=== PATIENT | female | born 1950 | race Caucasian/White ===

== ENCOUNTER → 2016-05-13 | Outpatient (CLI) | payer BC ==
[~2016-05-13] MED LIST: GADOBUTROL 10 ML VIAL IVP ONE
== END ==
LOC: FIMAGING 07:58
PROVIDERS: ATTEND Internal Medicine Hematology & Oncology
DX: R92.8 Other abnormal and inconclusive findings on diagnostic imaging of breast (principal); Z85.3 Personal history of malignant neoplasm of breast
CPT/HCPCS: 0159T; A9585; C8908

== ENCOUNTER → 2016-07-09 | Outpatient (CLI) | payer BC ==
[~2016-07-09] MED LIST changes: +BUPIVACAINE 0.5% 30 ML SDV ONE; +LIDOCAINE 1% 5 ML SDV ONE; +NA BICARBONATE 50 MEQ/50 ML VIAL ONE; +THROMBIN (BOVINE) 5,000 UNIT VIAL TP ONE
== END ==
LOC: FIMAGING 08:42
PROVIDERS: ATTEND Surgery
PROC: 0HBT3ZX Excision of Right Breast, Percutaneous Approach, Diagnostic (ICD-10-PCS; principal; 2016-07-09)
DX: N60.11 Diffuse cystic mastopathy of right breast (principal)
CPT/HCPCS: A9585

== ENCOUNTER → 2018-03-25 | Outpatient (CLI) | payer BC ==
[~2018-03-25] MED LIST changes: -BUPIVACAINE 0.5% 30 ML SDV ONE; -LIDOCAINE 1% 5 ML SDV ONE; -NA BICARBONATE 50 MEQ/50 ML VIAL ONE; -THROMBIN (BOVINE) 5,000 UNIT VIAL TP ONE
== END ==
LOC: FIMAGING 03-19 10:38
PROVIDERS: ATTEND Family Medicine
DX: C50.919 Malignant neoplasm of unspecified site of unspecified female breast (principal); M19.072 Primary osteoarthritis, left ankle and foot
CPT/HCPCS: 77047; A9585; C8908

== ENCOUNTER 2018-07-13 08:58 | Inpatient (IN) | payer BC ==
[2018-07-13] MEDS ORDERED: ceFAZolin 2 GM/DEXTROSE 100 ML IV ONE (10:44)
[2018-07-13] MEDS ORDERED: CHLORHEXIDINE GLUC HIBICLENS 118 ML BTL TP ONE (10:45)
[2018-07-13] MEDS ORDERED: BUPIVACAINE/EPI 0.25% 30 ML SDV ONE (10:46)
[2018-07-13] MEDS ORDERED: THROMBIN (BOVINE) 5,000 UNIT VIAL TP ONE (10:46)
[2018-07-13] MEDS ORDERED: BACITRACIN 50,000 UNITS/10 ML SYR IRR ONE (10:46)
[2018-07-13] MEDS ORDERED: LR 1,000 ML IV ONE (10:55)
--- NOTE | 2018-07-13 11:24 | PDGENHP ---
History & Physical Chief Complaint: Laryngeal Mass History of Present Illness: Laryngeal Mass on recent endoscopy. Pertinent Past, Social, Family History: Reviewed. Noncontributory. Relevant Physical Exam: A&O. NAD. CTA. RR Cardiorespiratory Assessment: A/P - Appropriate for DL&Bx.
[2018-07-13] MEDS ORDERED: MIDAZOLAM 2 MG/2 ML VIAL IVP ONE (11:49)
--- NOTE | 2018-07-13 11:49 | PDANEPAE ---
ANE History of Present Illness acdf laryngeal biopsy ANE Past Medical History - Cardiovascular History Hx Hypertension: Yes Hx Arrhythmias: No Hx Chest Pain: No Hx Coronary Artery / Peripheral Vascular Disease: No Hx CHF / Valvular Disease: No Hx Palpitations: No - Pulmonary History Hx COPD: No Hx Asthma/Reactive Airway Disease: No Hx Recent Upper Respiratory Infection: No Hx Oxygen in Use at Home: No Hx Sleep Apnea: Yes Sleep Apnea Screening Result - Last Documented: Positive Pulmonary History Comment: "11 minutes of exercise without breathing hard" - Neurologic History Hx Cerebrovascular Accident: No Hx Seizures: No Hx Dementia: No - Endocrine History Hx Diabetes: No Hypothyroid: No Hyperthyroid: No Obesity: no - Renal History Hx Renal Disorders: No - Liver History Hx Hepatic Disorders: No - Neurological & Psychiatric Hx Hx Neurological and Psychiatric Disorders: Yes Neurological / Psychiatric History Comment: numbness to hands in morning. when raising left arm causes cramp - Cancer History Hx Cancer: Yes Cancer History Comment: Breast cancer - Congenital Disorder History Hx Congenital Disorders: No - GI History GERD: no Hx Gastrointestinal Disorders: No - Other Health History Other Health History: pelvic fracture x2 and left leg fracture x2. cataract sx - Chronic Pain History Chronic Pain: Yes - Surgical History Prior Surgeries: lumpectomy, hysterectmy, lap adhesions on falopian tubes, tonsilectomy, C5 neck surgery. eyelid sx, ANE Review of Systems Review of Systems: - Exercise capacity Exercise capacity: >=4 METS METS (RN): 4 METS ANE Patient History - Allergies Allergies/Adverse Reactions: No Known Allergies Allergy (Verified 07/08/18 14:49) - Home Medications Home medications: home medication list seen and reviewed Home Medications: Anastrozole [Arimidex 1 mg (*)] 1 mg PO HS 07/05/16 [Last Taken 07/12/18] Sertraline HCl [Zoloft 50mg (*)] 50 mg PO HS 07/05/16 [Last Taken 07/12/18] amLODIPine BESYLATE [Norvasc 10 mg (*)] 10 mg PO HS 07/05/16 [Last Taken ] Acetaminophen [Tylenol 325mg (*)] 325 mg PO Q6 PRN 07/08/18 [Last Taken 07/12/18 ] Carboxymethylcellulose 1% [Refresh Celluvisc (*)] 1 drop EACHEYE DAILY PRN 07/08 [Last Taken 07/13/18] - NPO status NPO Since - Liquids (Date): 07/12/18 NPO Since - Liquids (Time): 23:59 NPO Since - Solids (Date): 07/12/18 NPO Since - Solids (Time): 18:00 - Anes Hx Hx Anesthesia Complications (with details): states it takes 6 months to get over the haze of anesthesia, loss of executive functions to organize, lost more recent memories - Smoking Hx Smoking Status: Never smoked - Family Anes Hx Family Hx Anesthesia Complications: mother had similar issues ANE Labs/Vital Signs - Vital Signs Blood Pressure: 130/69 Heart Rate: 71 Respiratory Rate: 71 O2 Sat (%): 97 Height: 162.56 cm Weight: 71.214 kg ANE Physical Exam - Airway Mallampati Score: Class 2 Mouth exam: normal dental/mouth exam - Pulmonary Pulmonary: no respiratory distress - Cardiovascular Cardiovascular: regular rate and rhythym - ASA Status ASA Status: II ANE Anesthesia Plan Anesthesia Plan: general endotracheal anesthesia
[2018-07-13] MEDS ORDERED: fentaNYL 100 MCG/2 ML INJ ONE ×2 (11:53→16:00)
[2018-07-13] MEDS ORDERED: PROPOFOL 200 MG/20 ML VIAL ONE (11:53)
[2018-07-13] MEDS ORDERED: PROPOFOL/EMULSION 500 MG/50 ML BOTTLE IV ONE (11:53)
[2018-07-13] MEDS ORDERED: REMIFENTANIL HCL 1 MG VIAL ONE (11:53)
[2018-07-13] MEDS ORDERED: LIDOCAINE 2% 5 ML SDV ONE (11:57)
[2018-07-13] MEDS ORDERED: ROCURONIUM 50 MG/5 ML VIAL ONE (11:58)
[2018-07-13] MEDS ORDERED: SUCCINYLCHOLINE CHLORIDE 200 MG/10 ML SYR IVP ONE (11:58)
[2018-07-13] MEDS ORDERED: DEXAMETHASONE 4 MG/ML VIAL ONE ×2 (11:59)
--- NOTE | 2018-07-13 12:41 | PDHPUP ---
History & Physical Update H&P update statement: This history and physical update is based on an assessment of the patient which was completed after admission or registration (within 24 hours), but prior to the surgery/procedure. H&P update: H&P reviewed & patient examined, no change in patient's condition since H&P completed
[2018-07-13] MEDS ORDERED: OXYMETAZOLINE 30 ML NASAL SPRAY ONE (13:15)
[2018-07-13] MEDS ORDERED: SUGAMMADEX SODIUM 200 MG/2 ML VIAL IVP ONE (13:53)
[2018-07-13] MEDS ORDERED: ONDANSETRON 4 MG/2 ML VIAL ONE (15:17)
[2018-07-13] MEDS ORDERED: LR 500 ML IV PRN (15:35)
[2018-07-13] MEDS ORDERED: ALBUTEROL 3 ML DEYVIAL IH PRN (15:35)
[2018-07-13] MEDS ORDERED: NALOXONE HCL 0.4 MG/ML INJ IVP PRN (15:35)
[2018-07-13] MEDS ORDERED: ONDANSETRON 4 MG/2 ML VIAL IVP PRN ×2 (15:35→15:42)
[2018-07-13] MEDS ORDERED: CARBOXYMETHYLCELLULOSE 1% 0.4 ML DROPERETTE EACHEYE PRN (15:41)
[2018-07-13] MEDS ORDERED: MAGNESIUM HYDROXIDE 30 ML UDCUP PO PRN (15:42)
[2018-07-13] MEDS ORDERED: ONDANSETRON DISINTEGRATING 4 MG TAB PO PRN (15:42)
[2018-07-13] MEDS ORDERED: BISACODYL 10 MG SUPP PR PRN (15:42)
[2018-07-13] MEDS ORDERED: LACTULOSE 20 GM/30 ML UDCUP PO PRN (15:42)
[2018-07-13] MEDS ORDERED: NS 1,000 ML IV SCH (15:45)
--- NOTE | 2018-07-13 15:50 | SOAPPROG ---
SOAP Progress Note Assessment/Plan: Assessment: 68 yo F sp C5/6 plate removal, C4/5 ACDF and epiglottis biopsy Plan: stable To 3N PT/OT hard collar in am ANNE x 1 please call with neuro changes 07/13/18 15:48 + Subjective: + neck pain, no arm pain, no weakness. Objective: Vital Signs Temp Pulse Resp BP Pulse Ox 36.5 C 71 71 H 130/69 H 97 07/13/18 11:03 07/13/18 11:49 07/13/18 11:49 07/13/18 11:49 07/13/18 11:49 somnolent PERRL, EOMI no facial droop 5/5 + light touch ICD10 Worksheet Patient Problems: Problems Problem Status Onset Fusion of spine of cervical region Acute - ICD10 Problem Qualifiers (1) Fusion of spine of cervical region
--- NOTE | 2018-07-13 15:56 | POSTANESTH ---
Post Anesthetic Evaluation Cardiovascular Status: Normal, Stable Respiratory Status: Normal, Stable Level of Consciousness/Mental Status: Can Participate in Eval Pain Control: Adequate, Prn Tx Ordered Nausea/Vomiting Control: Adequate, Prn Tx Ordered Complications Possibly Related to Anesthesia: None Noted
--- NOTE | 2018-07-13 15:57 | PDMN ---
Medical Necessity Medical necessity: [facility] S320 cervical fusion, OP: plate removal C5/6,C4/5 ACDF APPROVED AUTH#[id number] FOR [id number]
[2018-07-13] MEDS ORDERED: HYDROmorphONE/DILAUDID 1 MG/ML INJ ONE ×2 (16:00→16:50)
[2018-07-13] MEDS: fentaNYL 100 MCG/2 ML INJ IVP PRN ×2 (16:03→16:19)
[2018-07-13] MEDS ORDERED: DIAZEPAM 10 MG/2 ML SYR ONE (16:09)
[2018-07-13] MEDS: DIAZEPAM 10 MG/2 ML SYR IVP PRN ×4 (16:11→16:43)
[2018-07-13] MEDS: HYDROmorphONE/DILAUDID 1 MG/ML INJ IVP PRN ×5 (16:26→17:21)
[2018-07-13] MEDS: METHOCARBAMOL 750 MG TAB PO PRN (20:00)
[2018-07-13] MEDS: ANASTROZOLE 1 MG TAB PO SCH (20:01)
[2018-07-13] MEDS: SERTRALINE HCL 50 MG TAB PO SCH (20:02)
[2018-07-13] MEDS: FAMOTIDINE 20 MG TAB PO SCH (20:02)
[2018-07-13] MEDS: SENNOSIDES/DOCUSATE SODIUM TAB PO SCH (20:04)
[2018-07-13] MEDS: oxyCODONE IR 5 MG TAB PO PRN (20:15)
[2018-07-13] MEDS: ACETAMINOPHEN 500 MG TAB PO SCH (21:59)
[2018-07-13] MEDS: POLYETHYLENE GLYCOL 3350 17 GM PKT PO SCH (22:01)
[2018-07-13] MEDS: ceFAZolin 2 GM/DEXTROSE 100 ML IV SCH (22:07)
[2018-07-14] MEDS: POLYETHYLENE GLYCOL 3350 17 GM PKT PO SCH ×4 (04:12→20:57)
[2018-07-14 04:44] LABS: PLATELET COUNT 290 10^3/uL (150-400)
[2018-07-14] MEDS: ceFAZolin 2 GM/DEXTROSE 100 ML IV SCH (05:36)
[2018-07-14] MEDS: ACETAMINOPHEN 500 MG TAB PO SCH ×3 (05:57→22:35)
[2018-07-14] MEDS ORDERED: METHOCARBAMOL 1,000 MG in NS 50 ML IV ONE (08:56)
[2018-07-14] MEDS ORDERED: NS 500 ML IV ONE (08:56)
[2018-07-14] MEDS ORDERED: NS W/ 20 KCl/L 1,000 ML IV SCH (09:00)
[2018-07-14] MEDS ORDERED: SCOPOLAMINE HYDROBROMIDE 1 MG/3 DAYS PATCH TD SCH (09:00)
--- NOTE | 2018-07-14 09:03 | NEUSURGPN ---
Assessment/Plan: Assessment: 68 yo F sp C5/6 plate removal, C4/5 ACDF and epiglottis biopsy POD1 Plan: Nausea- order scopolamine patch, ordered IV fluids Optimize pain management- IV Robaxin x1 ordered for muscle spasms. morphine IV d /c. Need to work on Oral regiment today Post op xrays pending PT/OT hard collar in am ANNE x 1- Will continue till discharge Pathology from biopsy pending please call with neuro changes Discussed with Dr. Allen Subjective: Nausea and vomiting last night. Posterior neck pain. Objective: NAD A&Ox3 MAEx4 5/5 and equal in BUE and BLE. Neck soft, supple, no swelling. ANNE drain serosanguineous - Physician Discussed Patient with DrSiri: Yo Neurosurgery Physical Exam - Vitals, I&O, Labs I and O 07/13/18 07/14/18 07/15/18 05:59 05:59 05:59 Intake Total 2110 100 Output Total 1625 10 Balance 485 90 Weight 71.21 kg Intake: Oral (ml) 760 IV Intake (ml) 1250 IV Infused (ml) 100 100 ceFAZolin 2 GM/DEXTROSE 100 100 100 ml @ 200 mls/hr IV ONCALL ONE Rx#:[id number] Output: Urine (ml) 1575 Bedside Commode 575 Incontinence 700 Toilet 300 Estimated Blood Loss (ml) 0 ANNE Drain Output (ml) 50 10 Neck 50 10 Other: Number of Voids Bedside Commode 2 Incontinence 1 Toilet 1 Vital Signs Temp Pulse Resp BP Pulse Ox 37.0 C 80 16 121/62 H 98 07/14/18 07:58 07/14/18 07:58 07/14/18 07:58 07/14/18 07:58 07/14/18 07:58 Laboratory Results 07/14/18 04:15 07/14/18 04:15 ICD10 Worksheet Patient Problems: Problems Problem Status Onset Fusion of spine of cervical region Acute
[2018-07-14] MEDS: oxyCODONE IR 5 MG TAB PO PRN ×3 (10:14→20:55)
[2018-07-14] MEDS: FAMOTIDINE 20 MG TAB PO SCH ×2 (10:14→20:34)
[2018-07-14] MEDS: SENNOSIDES/DOCUSATE SODIUM TAB PO SCH ×2 (11:29→20:34)
--- NOTE | 2018-07-14 15:48 | ASMTCMCOM ---
CM Note CM Note Notes: Pt had planned surgery for stenosis. Pt resides with spouse. PT rec home care, OT rec home/ 24 hr supervision. Pt will think about home care, wants to see how she does with PT tomorrow. CM to follow pt progress and see pt tomorrow. Pt mentions she has an appointment at for an ankle surgery. D/c plan of care: Date Signed: 07/14/2018 03:48 PM Electronically Signed By:KELLIE Manning
[2018-07-14] MEDS: diphenhydrAMINE 25 MG CAP PO PRN (16:31)
[2018-07-14] MEDS: SERTRALINE HCL 50 MG TAB PO SCH ×2 (20:34→21:19)
[2018-07-14] MEDS: ANASTROZOLE 1 MG TAB PO SCH ×2 (20:35→21:01)
[2018-07-15] MEDS: diphenhydrAMINE 25 MG CAP PO PRN ×3 (03:11→15:50)
[2018-07-15] MEDS: oxyCODONE IR 5 MG TAB PO PRN ×2 (03:11→15:48)
[2018-07-15] MEDS: METHOCARBAMOL 750 MG TAB PO PRN ×2 (03:13→13:47)
[2018-07-15] MEDS: ACETAMINOPHEN 500 MG TAB PO SCH ×2 (06:06→13:40)
--- NOTE | 2018-07-15 12:10 | PDHOMEO2F ---
Home Oxygen Face to Face Home Orders: I certify that a physician or a nurse practitioner or physician's physicians assistant has had a [id number] encounter with this patient on the date of this order due to the diagnosis listed, which relates to the primary reason the patient requires home oxygen. Alternative treatments have been tried, or considered, and deemed ineffective. It is anticipated that supplemental oxygen will result in improvement with treatment. Home oxygen qualifying diagnosis: post op hypoxia SpO2 on room air (%): 84% Frequency of home oxygen needed: continuous Home oxygen liters per minute: 2-4 Home oxygen delivery device: nasal cannula Concentrator: Yes E-tanks for mobility and back up: Yes If ordering portable O2, is the patient mobile in the home?: Yes I certify that, based on these findings, the home oxygen is medically necessary for this patient for the following length of time. Length of time home oxygen needed: 1 month
[2018-07-15] MEDS: SENNOSIDES/DOCUSATE SODIUM TAB PO SCH (13:21)
[2018-07-15] MEDS: POLYETHYLENE GLYCOL 3350 17 GM PKT PO SCH ×2 (13:21→16:48)
[2018-07-15] MEDS: FAMOTIDINE 20 MG TAB PO SCH (13:21)
[2018-07-15] MEDS ORDERED: PNEUMOC 13-VAL CONJ-DIP CRM/PF 0.5 ML SYR (PREVNAR 13) IM ONE (13:24)
--- NOTE | 2018-07-15 13:50 | GOP ---
[f rep st] OPERATIVE REPORT DATE OF OPERATION: 07/13/2018 SURGEON: Dereje Suárez MD ICT QUALITY ASSURANCE ENGINEER: None. ANESTHESIA: General. PREOPERATIVE DIAGNOSIS: Epiglottic mass, posterior pharyngeal mass. POSTOPERATIVE DIAGNOSIS: Same. PROCEDURE PERFORMED: Direct laryngoscopy with biopsies of both posterior pharyngeal and epiglottic m asses. FINDINGS: 5 mm left epiglottic mucosal covered pedunculated mass. 2 mm left posterior pharyngeal pe dunculated mucosal covered mass. SPECIMENS: 5 mm left epiglottic mucosal covered pedunculated mass. 2 mm left posterior pharyngeal p edunculated mucosal covered mass. INDICATIONS: Patient was seen in outpatient clinic in evaluation for vocal cord function. Vocal fol d function was found to be normal, but on endoscopy she was found to have a left-sided epiglottic mas s and a left posterior pharyngeal mass. Given her history and findings, she was determined to be an appropriate candidate for the above-stated procedures. The risks, benefits, and alternatives to the procedures were explained at length to the patient, who stated she understood and agreed. DESCRIPTION OF PROCEDURE: Patient was brought to the Operating Room by Anesthesiology and placed on the operating table. Once appropriate level of anesthesia was achieved, the patient was prepped and draped in the usual fashion. A teeth guard was placed over the upper teeth. The oral cavity was ins pected visually and palpated with no abnormal findings. The Dedo laryngoscope was then passed throug h the oral cavity, posterior pharynx, and hypopharynx for view of the larynx. The vallecula, epiglot tis, tongue base, bilateral piriform sinuses, false and true vocal folds, and cricoid region were all inspected. The only lesions found were those noted in the findings. The left-sided epiglottic mass was localized within view of the laryngoscope. A cup forceps was then used to grasp the base of the lesion and complete an excisional biopsy. There was some mild bleeding with this, and hemostasis wa s achieved using Afrin-soaked pledgets. With the pledgets removed, there was good hemostasis. The l aryngoscope was then moved in order to focus on the posterior pharyngeal mass. Again, the cup forcep s were used to grasp and excise this lesion. There was some mild bleeding at the surgical bed, and t his was controlled with Afrin-soaked pledgets. Once removed, there was good hemostasis at the site. The laryngoscope was then removed. The upper teeth guard was removed. The patient was then turned over to Anesthesiology and Dr. Ram for the cervical spine portion of the case. COMPLICATIONS: None. /[id number]/MODL
--- NOTE | 2018-07-15 14:03 | PDHOMEO2F ---
Home Oxygen Face to Face Home Orders: I certify that a physician or a nurse practitioner or physician's executive chef assistant has had a [id number] encounter with this patient on the date of this order due to the diagnosis listed, which relates to the primary reason the patient requires home oxygen. Alternative treatments have been tried, or considered, and deemed ineffective. It is anticipated that supplemental oxygen will result in improvement with treatment. Home oxygen qualifying diagnosis: post op hypoxia SpO2 on room air (%): 84% Frequency of home oxygen needed: continuous Home oxygen liters per minute: 2 Home oxygen delivery device: nasal cannula Concentrator: Yes E-tanks for mobility and back up: Yes If ordering portable O2, is the patient mobile in the home?: Yes I certify that, based on these findings, the home oxygen is medically necessary for this patient for the following length of time. Length of time home oxygen needed: 1 month
--- NOTE | 2018-07-15 15:24 | ASMTLACE ---
LACE Length of stay for Answers: 3 days current admission Acuity / Level of Answers: Yes Care: Did the patient have an inpatient admission? Comorbidities - select Answers: Any tumor (including all that apply lymphoma or leukemia) Opioid dependence / Chronic pain Other Notes: HTN # of Emergency department Answers: 0 visits in the last 6 months Score: 13 Date Signed: 07/15/2018 03:23 PM Electronically Signed By:KELLIE Manning
--- NOTE | 2018-07-15 15:29 | ASMTCMCOM ---
CM Note CM Note Notes: Today PT rec home, pt declines home care need. Pt will have supervision from and friends/family. Pt has [facility] PCP, voicemail left at scheduling back line [phone] for follow up with pt. Date Signed: 07/15/2018 03:28 PM Electronically Signed By:KELLIE Manning
[2018-07-15 15:35] VITALS: BP 137/76
--- NOTE | 2018-07-15 15:40 | SOAPPROG ---
SOAP Progress Note Assessment/Plan: Assessment: 68 yo F POD #2 C5/6 plate removal, C4/5 ACDF and epiglottis biopsy Plan: stable x-rays look great PT/OT hard collar in am ANNE, remove today dc home please call with neuro changes patient seen by Dr Allen 07/13/18 15:48 + 07/15/18 15:39 Subjective: + neck pain, no arm pain, no weakness. Objective: Vital Signs Temp Pulse Resp BP Pulse Ox 37.4 C 90 17 137/76 H 92 07/15/18 15:34 07/15/18 15:34 07/15/18 15:34 07/15/18 15:34 07/15/18 15:34 Laboratory Results 07/14/18 04:15 07/14/18 04:15 07/14/18 07/15/18 07/16/18 05:59 05:59 05:59 Intake Total 2110 1100 Output Total 1625 30 20 Balance 485 1070 -20 AAOx4, +FC PERRL, EOMI, no facial droop 5/5 + light touch C/D/I ICD10 Worksheet Patient Problems: Problems Problem Status Onset Fusion of spine of cervical region Acute - ICD10 Problem Qualifiers (1) Fusion of spine of cervical region
--- NOTE | 2018-07-15 20:06 | GDS ---
[f rep st] DISCHARGE SUMMARY ADMISSION DIAGNOSES: 1. 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 2. Laryngeal mass. DISCHARGE DIAGNOSES: 1. Status post C5-6 plate removal and C4-5 anterior cervical diskectomy and fusion. 2. Biopsy of the laryngeal mass. HISTORY AND PHYSICAL: Please see admission history and physical. COURSE: Patient is a 68-year-old female who presented with neck pain, right arm pain, and paresthesias. She was found to have C4-5 stenosis. She was referred to [facility] for evaluation of her recurrent laryngeal nerve function prior to redo anterior cervical diskectomy and fusion there that Dr. Dereje Suárez discovered a laryngeal mass. She was taken to the operating room on 07/13/2018, where she underwent of C5-6 plate removal and C4-5 anterior cervical diskectomy and fusion. After the induction with anesthesia, Dr. Suárez performed a laryngeal mass biopsy. There were no intraoperative complications and the patient woke up well in the recovery room. She was then transferred to the floor where she made fair progress with physical therapy and occupational therapy, she was ambulating on, tolerating a regular diet. She was discharged home with oxygen for a postoperative hypoxia on 07/15/2018. Patient was discharged with cervical fusion instructions and recommended she return for neurosurgical followup appointment in 10-14 days. It was also recommended that she follow up with Dr. Suárez in approximately 1-2 weeks for her biopsy results. /[id number]/MODL MTDD
[2018-07-16] MEDS ORDERED: ENOXAPARIN 40 MG/0.4 ML SYR SC SCH (09:00)
--- NOTE | 2018-07-16 10:53 | GOP ---
[f rep st] OPERATIVE REPORT DATE OF OPERATION: 07/13/2018 SURGEON: Saúl Ram MD NEUROSURGEON: Saúl Ram MD. SOCIAL STAFF WORKER: Allen Becker PA-C. ANESTHESIA: General endotracheal. PREOPERATIVE DIAGNOSIS: C4-5 adjacent level degeneration, spinal stenosis, and neural foraminal impi ngement with progressive myelopathic symptoms, status post a prior C5-6 instrumented anterior cervica l diskectomy and fusion. POSTOPERATIVE DIAGNOSIS: C4-5 adjacent level degeneration, spinal stenosis, and neural foraminal imp ingement with progressive myelopathic symptoms, status post a prior C5-6 instrumented anterior cervic al diskectomy and fusion. PROCEDURE PERFORMED: Removal of C5-6 anterior cervical plate with exploration of spinal fusion. C4- 5 complete anterior cervical diskectomy and arthrodesis with a structural PEEK interbody spacer, and placement of a Medtronic anterior cervical plate at C4-5 with self-drilling screws. Use of intraoper ative microscopy and fluoroscopy. FINDINGS: ESTIMATED BLOOD LOSS: Trace. INDICATIONS: The patient is a 68-year-old woman with a prior C5-6 anterior cervical diskectomy and a rthrodesis with plating, who has severe adjacent level degeneration and disk space collapse with disk herniation, spinal stenosis, and lateral recess and neural foraminal impingement, with progressive r ight arm pain and numbness and hand weakness. She presents now for surgical decompression and stabil ization at the C4-5 level with removal of the plate at C5-6. DESCRIPTION OF PROCEDURE: After informed consent was obtained, the patient was taken to the operatin g room and placed in the supine position with the head in the halter retractor system after baseline neuromonitoring signals were obtained. The anterior cervical region was prepped and draped in a ster ile fashion. After fluoroscopic localization of the correct level, the subcutaneous and intramuscula r tissues were infiltrated with local anesthesia. A horizontal incision was then created at the leve l of the C5 vertebral body in a skin crease. This was carried through the platysmal layer using mono polar electrocautery, and carried in the avascular plane between the sternocleidomastoid and carotid sheath laterally, and strap muscles, trachea, and esophagus medially down to the prevertebral fascia, which was carefully incised with Metzenbaum scissors. The prior plate was carefully identified, dis sected out, and removed. There was quite a bit of bony overgrowth, and this was very time consuming and required meticulous dissection in order to get the plate out. It took approximately 2 to 3 times as long as normal. The prior fusion was explored and noted to be solid at C5-6. The [place] distrac tion pins were then inserted at C4-5, and under slight distraction a complete diskectomy was performe d with removal of the posterior longitudinal ligament. Bilateral foraminotomies were performed, and the endplates were carefully prepared. Following adequate decompression of the neural foramina and c entral canal, the wound was copiously irrigated with antibiotic irrigation. Meticulous hemostasis wa s achieved. After preparing the endplates, an appropriately-sized structural PEEK interbody spacer p acked with local autograft in the center was placed under fluoroscopic imaging guidance. A Medtronic anterior cervical plate was then placed at C4-5 and the locking mechanism engaged after fluoroscopic verification of good positioning of the plate, screws, and interbody spacer. Following this, a drai n was placed. The subcutaneous and intramuscular tissues were re-infiltrated with local anesthesia, and the wound was closed in a layered fashion using interrupted Vicryl sutures, followed by Steri-Str ips on the skin. COMPLICATIONS: None. DISPOSITION: The patient was extubated and transported to the recovery room in stable condition. /[id number]/MODL
[2018-07-17] MEDS ORDERED: PATCH REMOVAL 1 EA PATCH TD SCH (08:55)
== END 2018-07-15 16:54 | disposition home or self-care (01) | DRG 520 ==
LOC: F3N 10:06
PROVIDERS: ADMIT Neurological Surgery; ATTEND Neurological Surgery
PROC: 4A1004G Monitoring of Central Nervous Electrical Activity, Intraoperative, Open Approach (ICD-10-PCS; principal; 2018-07-13 11:45)
PROC: 0CBM8ZX Excision of Pharynx, Via Natural or Artificial Opening Endoscopic, Diagnostic (ICD-10-PCS; principal; 2018-07-13 11:45)
PROC: 0CBR8ZX Excision of Epiglottis, Via Natural or Artificial Opening Endoscopic, Diagnostic (ICD-10-PCS; principal; 2018-07-13 11:45)
PROC: 0RT30ZZ Resection of Cervical Vertebral Disc, Open Approach (ICD-10-PCS; principal; 2018-07-13 11:45)
PROC: 0RP10AZ Removal of Interbody Fusion Device from Cervical Vertebral Joint, Open Approach (ICD-10-PCS; principal; 2018-07-13 11:45)
PROC: 8E0WXBZ Computer Assisted Procedure of Trunk Region (ICD-10-PCS; principal; 2018-07-13 11:45)
DX: M50.00 Cervical disc disorder with myelopathy, unspecified cervical region (principal); M50.321 Other cervical disc degeneration at C4-C5 level; M48.02 Spinal stenosis, cervical region; D14.1 Benign neoplasm of larynx; I10 Essential (primary) hypertension; Z85.3 Personal history of malignant neoplasm of breast; Z23 Encounter for immunization
CPT/HCPCS: 97116-GP; 97161-GP; 97166-GO; C1713; G0009; J0330; J0690; J1100; J1170; J2250; J2270; J2405; J2704; J2800; J3010; J3360